=== PATIENT | male | born 1960 | race Caucasian/White ===

== ENCOUNTER 2017-02-14 15:51 | Emergency (ER) | payer BC ==
[2017-02-14] MEDS ORDERED: Sodium Chloride 0.9% 1,000 ML IV ONE (16:19)
[2017-02-14] MEDS ORDERED: Sodium Chloride 0.9% 2.5 ML Syringe FLUSH PRN (16:19)
[2017-02-14] MEDS ORDERED: Sodium Chloride 0.9% 10 ML Syringe FLUSH PRN (16:19)
[2017-02-14] MEDS ORDERED: Ketorolac 30 MG/ML SDV IVPUSH ONE (16:19)
--- NOTE | 2017-02-14 16:23 | EDM.PDOC ---
ED HPI GENERAL MEDICAL PROBLEM - General Chief Complaint: General Stated Complaint: DIZZY Time Seen by Provider: 02/14/17 16:11 - History of Present Illness INITIAL COMMENTS - FREE TEXT/NARRATIVE: HISTORY AND PHYSICAL: History of present illness: The patient is a 56-year-old male with no stated medical problems who presents with a two-day history of subjective fevers and chills cough nonproductive of phlegm generalized malaise and weakness and feeling lightheaded. Patient did not take his temperature at home is not sure what his temperature was but he felt hot. Patient denies any cardiac or pulmonary disease and has had no vomiting or diarrhea. He states he has been drinking tea and some water. Patient has been around ill coworkers and states he did get his influenza shot this year. Patient denies abdominal pain urinary complaints he does have a sore throat and only minimal sinus congestion. The patient did not take anything over -the-counter for these symptoms. He denies any focal weakness in his extremities and has no neck or back pain Review of systems: As per history of present illness and below otherwise all systems reviewed and negative. Past medical history: As per history of present illness and as reviewed below otherwise noncontributory. Surgical history: As per history of present illness and as reviewed below otherwise noncontributory. Social history: No reported history of drug or alcohol abuse. Family history: As per history of present illness and as reviewed below otherwise noncontributory. Physical exam: General: Well-developed well-nourished man who is nontoxic and speaking clearly and easily. His vital signs have been reviewed by me HEENT: Atraumatic, normocephalic, pupils reactive, negative for conjunctival pallor or scleral icterus, mucous membranes moist, throat clear of exudates but there is posterior oropharyngeal erythema but uvula is midline and there is no cervical adenopathy or nuchal rigidity, neck supple, nontender, trachea midline. Lungs: Clear to auscultation, breath sounds equal bilaterally, chest nontender. No wheezing stridor or sensory muscle use Heart: S1S2, regular, negative for clicks, rubs, or JVD. Abdomen: Soft, nondistended, nontender. Negative for masses or hepatosplenomegaly. Negative for costovertebral tenderness. Pelvis: Stable nontender. Genitourinary: Deferred. Rectal: Deferred. Extremities: Atraumatic, negative for cords or calf pain. Neurovascular unremarkable. Neuro: Awake, alert, oriented. Cranial nerves II through XII unremarkable. Cerebellum unremarkable. Motor and sensory unremarkable throughout. Exam nonfocal. Diagnostics: EKG chest x-ray CBC CMP lactic acid UA influenza swab orthostatic vitals Therapeutics: IV fluids Toradol I discussed with the patient all of his testing results and negative results. He is upset that there is no answer for why he feels so poorly and wants a " shot of something" that'll make him feel better. I told him that he would need to let his body heal on its own and he would need to hydrate use over-the- counter medications for fever and body aches and to followup in our clinic. Impression: Viral illness/generalized weakness and malaise/lightheadedness stable Definitive disposition and diagnosis as appropriate pending reevaluation and review of above. Generalized Pain Score (Numeric/FACES): 5 - Related Data Allergies Allergy/AdvReac Type Severity Reaction Status Date / Time No Known Allergies Allergy Verified 02/14/17 16:00 Home Meds: Home Meds . [No Known Home Meds] 02/14/17 [History] Past Medical History - Past Health History Medical/Surgical History: Denies Medical/Surgical History HEENT History: Reports: None Cardiovascular History: Reports: None Respiratory History: Reports: None Gastrointestinal History: Reports: None Genitourinary History: Reports: None Musculoskeletal History: Reports: None Neurological History: Reports: None Psychiatric History: Reports: None Endocrine/Metabolic History: Reports: None Hematologic History: Reports: None Immunologic History: Reports: None Oncologic (Cancer) History: Reports: None Dermatologic History: Reports: None - Infectious Disease History Infectious Disease History: Reports: Chicken pox - Past Surgical History Head Surgeries/Procedures: Reports: None Respiratory Surgical History: Reports: None GI Surgical History: Reports: Appendectomy Male Surgical History: Reports: None Social & Family History - Family History Family Medical History: Noncontributory - Tobacco Use Smoking Status *Q: Current Every Day Smoker Years of Tobacco use: 34 Packs/Tins Daily: 1 - Caffeine Use Caffeine Use: Reports: None - Recreational Drug Use Recreational Drug Use: No ED ROS GENERAL - Review of Systems Review Of Systems: ROS reveals no pertinent complaints other than HPI. ED EXAM, GENERAL - Physical Exam Exam: See Below (See dictation) Course - Vital Signs Last Recorded V/S: Last Vital Signs Temp 37.0 C 02/14/17 15:57 Pulse 82 02/14/17 15:57 Resp 18 02/14/17 15:57 BP 119/85 02/14/17 15:57 Pulse Ox 94 L 02/14/17 15:57 Orthostatic Blood Pressure [ 117/79 Standing] Orthostatic Blood Pressure [ 117/78 Sitting] Orthostatic Blood Pressure [ 117/78 Supine] - Orders/Labs/Meds Orders: Active Orders 24 hr Category Date Time Status EKG Documentation Completion [RC] STAT Care 02/14/17 16:17 Active Chest 2V [CR] Stat Exams 02/14/17 16:20 Taken Sodium Chloride 0.9% [Saline Flush] Med 02/14/17 16:19 Active 10 ml FLUSH ASDIRECTED PRN Sodium Chloride 0.9% [Saline Flush] Med 02/14/17 16:19 Active 2.5 ml FLUSH ASDIRECTED PRN Saline Lock Insert [OM.PC] Stat Oth 02/14/17 16:17 Ordered Medication Orders Sodium Chloride (Saline Flush) 10 ml FLUSH ASDIRECTED PRN PRN Reason: Keep Vein Open Sodium Chloride (Saline Flush) 2.5 ml FLUSH ASDIRECTED PRN PRN Reason: Keep Vein Open Labs: Laboratory Tests 02/14/17 02/14/17 02/14/17 Range/Units 16:25 16:25 16:25 WBC 5.99 (4.0-11.0) K/uL RBC 4.60 (4.50-5.90) M/uL Hgb 13.8 (13.0-17.0) g/dL Hct 42.1 (38.0-50.0) % MCV 91.5 (80.0-98.0) fL MCH 30.0 (27.0-32.0) pg MCHC 32.8 (31.0-37.0) g/dL RDW Std Deviation 48.4 (28.0-62.0) fl RDW Coeff of Britany 14 (11.0-15.0) % Plt Count 283 (150-400) K/uL MPV 9.80 (7.40-12.00) fL Neut % (Auto) 76.6 (48.0-80.0) % Lymph % (Auto) 14.7 L (16.0-40.0) % [place] % (Auto) 6.8 (0.0-15.0) % Eos % (Auto) 1.2 (0.0-7.0) % Baso % (Auto) 0.7 (0.0-1.5) % Neut # 4.6 (1.4-5.7) K/uL Lymph # 0.9 (0.6-2.4) K/uL [place] # 0.4 (0.0-0.8) K/uL Eos # 0.1 (0.0-0.7) K/uL Baso # 0.0 (0.0-0.1) K/uL Nucleated RBC % 0.0 /100WBC Nucleated RBCs # 0 K/uL Lactate 0.7 (0.20-2.00) mmol/L Sodium 136 (136-146) mmol/L Potassium 4.2 (3.5-5.1) mmol/L Chloride 104 (98-110) mmol/L Carbon Dioxide 23 (21-31) mmol/L BUN 12 (6.0-23.0) mg/dL Creatinine 0.9 (0.6-1.5) mg/dL Est Cr Clr Drug Dosing 98.20 mL/min Estimated GFR (MDRD) > 60.0 ml/min Glucose 96 (60-110) mg/dL Calcium 8.4 L (8.8-10.8) mg/dL Total Bilirubin 0.2 (0.1-1.5) mg/dL AST 19 (5-40) IU/L ALT 14 (8-54) IU/L Alkaline Phosphatase 63 (40-150) Total Protein 6.7 (6.0-8.0) g/dL Albumin 3.7 (3.5-5.0) g/dL Globulin 3.0 (2.0-3.5) g/dL Albumin/Globulin Ratio 1.2 L (1.3-2.8) Urine Color Urine Appearance Urine pH (5.0-8.0) Ur Specific [place] (1.001-1.035) Urine Protein (NEGATIVE) mg/dL Urine Glucose (UA) (NEGATIVE) mg/dL Urine Ketones (NEGATIVE) mg/dL Urine Occult Blood (NEGATIVE) Urine Nitrite (NEGATIVE) Urine Bilirubin (NEGATIVE) Urine Urobilinogen (<2.0) EU/dL Ur Leukocyte Esterase (NEGATIVE) Urine RBC (0-2/HPF) Urine WBC (0-5/HPF) Ur Epithelial Cells (NONE-FEW) Urine Bacteria (NEGATIVE) 02/14/17 Range/Units 17:20 WBC (4.0-11.0) K/uL RBC (4.50-5.90) M/uL Hgb (13.0-17.0) g/dL Hct (38.0-50.0) % MCV (80.0-98.0) fL MCH (27.0-32.0) pg MCHC (31.0-37.0) g/dL RDW Std Deviation (28.0-62.0) fl RDW Coeff of Britany (11.0-15.0) % Plt Count (150-400) K/uL MPV (7.40-12.00) fL Neut % (Auto) (48.0-80.0) % Lymph % (Auto) (16.0-40.0) % [place] % (Auto) (0.0-15.0) % Eos % (Auto) (0.0-7.0) % Baso % (Auto) (0.0-1.5) % Neut # (1.4-5.7) K/uL Lymph # (0.6-2.4) K/uL [place] # (0.0-0.8) K/uL Eos # (0.0-0.7) K/uL Baso # (0.0-0.1) K/uL Nucleated RBC % /100WBC Nucleated RBCs # K/uL Lactate (0.20-2.00) mmol/L Sodium (136-146) mmol/L Potassium (3.5-5.1) mmol/L Chloride (98-110) mmol/L Carbon Dioxide (21-31) mmol/L BUN (6.0-23.0) mg/dL Creatinine (0.6-1.5) mg/dL Est Cr Clr Drug Dosing mL/min Estimated GFR (MDRD) ml/min Glucose (60-110) mg/dL Calcium (8.8-10.8) mg/dL Total Bilirubin (0.1-1.5) mg/dL AST (5-40) IU/L ALT (8-54) IU/L Alkaline Phosphatase (40-150) Total Protein (6.0-8.0) g/dL Albumin (3.5-5.0) g/dL Globulin (2.0-3.5) g/dL Albumin/Globulin Ratio (1.3-2.8) Urine Color YELLOW Urine Appearance CLEAR Urine pH 6.5 (5.0-8.0) Ur Specific [place] 1.015 (1.001-1.035) Urine Protein NEGATIVE (NEGATIVE) mg/dL Urine Glucose (UA) NEGATIVE (NEGATIVE) mg/dL Urine Ketones NEGATIVE (NEGATIVE) mg/dL Urine Occult Blood TRACE-LYSED (NEGATIVE) Urine Nitrite NEGATIVE (NEGATIVE) Urine Bilirubin NEGATIVE (NEGATIVE) Urine Urobilinogen 0.2 (<2.0) EU/dL Ur Leukocyte Esterase NEGATIVE (NEGATIVE) Urine RBC 0-2 (0-2/HPF) Urine WBC 0-1 (0-5/HPF) Ur Epithelial Cells RARE (NONE-FEW) Urine Bacteria RARE (NEGATIVE) Meds: Medications Generic Name Dose Route Start Last Admin Trade Name Freq PRN Reason Stop Dose Admin Sodium Chloride 10 ml 02/14/17 16:19 Saline Flush FLUSH ASDIRECTED PRN Keep Vein Open Sodium Chloride 2.5 ml 02/14/17 16:19 Saline Flush FLUSH ASDIRECTED PRN Keep Vein Open Discontinued Medications Generic Name Dose Route Start Last Admin Trade Name Freq PRN Reason Stop Dose Admin Sodium Chloride 1,000 mls @ 999 mls/hr 02/14/17 16:19 02/14/17 16:40 Normal Saline IV 02/14/17 17:19 999 mls/hr STAT ONE Administration Ketorolac Tromethamine 30 mg 02/14/17 16:19 02/14/17 16:40 Toradol IVPUSH 02/14/17 16:20 30 mg ONETIME ONE Administration Departure - Departure Time of Disposition: 18:00 Disposition: Home, Self-Care 01 Condition: good Clinical Impression: Viral syndrome, Lightheadedness, Generalized weakness Forms: ED Department Discharge Additional Instructions: The following information is given to patients seen in the emergency department who are being discharged to home. This information is to outline your options for follow-up care. We provide all patients seen in our emergency department with a follow-up referral. The need for follow-up, as well as the timing and circumstances, are variable depending upon the specifics of your emergency department visit. If you don't have a primary care physician on staff, we will provide you with a referral. We always advise you to contact your personal physician following an emergency department visit to inform them of the circumstance of the visit and for follow-up with them and/or the need for any referrals to a consulting specialist. The emergency department will also refer you to a specialist when appropriate. This referral assures that you have the opportunity for followup care with a specialist. All of these measure are taken in an effort to provide you with optimal care, which includes your followup. Under all circumstances we always encourage you to contact your private physician who remains a resource for coordinating your care. When calling for followup care, please make the office aware that this follow-up is from your recent emergency room visit. If for any reason you are refused follow-up, please contact the emergency department at and ask to speak to the emergency department charge nurse. [facility] Primary care- [place] [address] Please push hydration such as water Gatorade and non-caffeinated liquids. Rest and use [id number] Tylenol/ibuprofen for fever and pain. Please call and followup in our clinic 1-2 days and return to the ER as needed and as discussed - My Orders Last 24 Hours: My Active Orders 02/14/17 16:17 EKG Documentation Completion [RC] STAT Saline Lock Insert [OM.PC] Stat 02/14/17 16:19 Sodium Chloride 0.9% [Saline Flush] 10 ml FLUSH ASDIRECTED PRN Sodium Chloride 0.9% [Saline Flush] 2.5 ml FLUSH ASDIRECTED PRN 02/14/17 16:20 Chest 2V [CR] Stat - Assessment/Plan Last 24 Hours: My Active Orders 02/14/17 16:17 EKG Documentation Completion [RC] STAT Saline Lock Insert [OM.PC] Stat 02/14/17 16:19 Sodium Chloride 0.9% [Saline Flush] 10 ml FLUSH ASDIRECTED PRN Sodium Chloride 0.9% [Saline Flush] 2.5 ml FLUSH ASDIRECTED PRN 02/14/17 16:20 Chest 2V [CR] Stat
[2017-02-14 17:08] LABS: CHLORIDE,CL 104 mmol/L (98-110); SODIUM,NA 136 mmol/L (136-146)
[2017-02-14 18:25] VITALS: BP 115/70
--- NOTE | 2017-02-15 14:39 | CR ---
EXAM DATE: 02/14/17 PATIENT'S AGE: 56 Patient: MERCED MAS Facility: [place], [place] Site . Site : 1960 Study: XRay Chest [id number]/21/2017 5:19:20 PM Ordering Physician: Doctor Romero Final Report: INDICATION: dizziness, cough, nausea TECHNIQUE: Chest 2 views. COMPARISON: None. FINDINGS: Cardiovascular and mediastinum: Heart size and vasculature are normal in caliber and appearance. Mediastinum is within normal limits. Lungs and pleural spaces: Lungs are clear. No sign of infiltrate or mass. No sign of pleural effusion. No pneumothorax. Bones and soft tissues: No significant findings. IMPRESSION: Unremarkable chest. Dictated by: Vadim Stone MD @ 02/14/2017 17:44:40 (Electronic Signature) Report Signed by Proxy and Original Signed Document filed in the Medical Record. MTDD
== END 2017-02-14 18:13 | disposition home or self-care (01) ==
LOC: MW.ED 15:51
DX: B34.9 Viral infection, unspecified (principal); R42 Dizziness and giddiness; R53.1 Weakness; F17.210 Nicotine dependence, cigarettes, uncomplicated
CPT/HCPCS: 36415; 71020; 80053; 81001; 83605; 85025; 87804; 93005; 96361; 96374; 99285; J1885; J7040; 99284